=== PATIENT | female | born 1965 | race African-American/Black ===

== ENCOUNTER 2021-12-10 10:16 | Day surgery (SDC) | payer OTHER ==
[2021-12-08 16:03] VITALS: BMI 27.1
[2021-12-10 11:22] VITALS: RESP 18
[2021-12-10 13:08] VITALS: BP 116/78; PULSE 56; TEMP 97.7
== END 2021-12-10 13:08 | disposition home or self-care (01) ==
LOC: FASU-ENDO 10:16
PROVIDERS: ATTEND Internal Medicine Gastroenterology
PROC: 0DB68ZX Excision of Stomach, Via Natural or Artificial Opening Endoscopic, Diagnostic (ICD-10-PCS; 2021-12-10)
PROC: 0DB48ZX Excision of Esophagogastric Junction, Via Natural or Artificial Opening Endoscopic, Diagnostic (ICD-10-PCS; 2021-12-10)
PROC: 0DB98ZX Excision of Duodenum, Via Natural or Artificial Opening Endoscopic, Diagnostic (ICD-10-PCS; principal; 2021-12-10 11:55)
DX: K29.50 Unspecified chronic gastritis without bleeding (principal); K20.90 Esophagitis, unspecified without bleeding; R10.13 Epigastric pain; R19.5 Other fecal abnormalities
CPT/HCPCS: 88305-TC; 88342-TC

== ENCOUNTER 2022-02-11 10:29 | Day surgery (SDC) | payer OTHER ==
[2022-02-11] MEDS ORDERED: PROPOFOL 40 ML ONE (12:08)
[2022-02-11 12:34] VITALS: RESP 20; TEMP 96.6
[2022-02-11 13:27] VITALS: BP 101/54; PULSE 52
== END 2022-02-11 12:45 | disposition home or self-care (01) ==
LOC: FASU-ENDO 10:29
PROVIDERS: ATTEND Internal Medicine Gastroenterology
PROC: 0DB68ZX Excision of Stomach, Via Natural or Artificial Opening Endoscopic, Diagnostic (ICD-10-PCS; 2022-02-11)
PROC: 0DB48ZX Excision of Esophagogastric Junction, Via Natural or Artificial Opening Endoscopic, Diagnostic (ICD-10-PCS; 2022-02-11)
PROC: 0DB98ZX Excision of Duodenum, Via Natural or Artificial Opening Endoscopic, Diagnostic (ICD-10-PCS; principal; 2022-02-11 12:07)
DX: K29.50 Unspecified chronic gastritis without bleeding (principal); K21.00 Gastro-esophageal reflux disease with esophagitis, without bleeding; R12 Heartburn; Z87.11 Personal history of peptic ulcer disease
CPT/HCPCS: 88305-TC; 88342-TC